=== PATIENT | female | born 1990 | race Two or more races ===

== ENCOUNTER → 2025-05-24 | Outpatient (CLI) | payer MEDICAID ==
[2025-05-24 07:20] LABS: Hematocrit 31.6 % (36.0-46.0); Hemoglobin 11.1 g/dL (12.2-16.2); Mean Corpuscular Hemoglobin 30.0 pg (28.0-32.0); Mean Corpuscular Volume 85.5 fL (80.0-100.0); Nucleated Red Blood Cells % 0.1 %
== END | disposition home or self-care (01) ==
LOC: LAB 06:43
PROVIDERS: ATTEND Obstetrics & Gynecology
DX: Z34.00 Encounter for supervision of normal first pregnancy, unspecified trimester (principal); Z3A.00 Weeks of gestation of pregnancy not specified
CPT/HCPCS: 36415; 82951; 83036; 85025

== ENCOUNTER 2025-07-01 08:40 | Outpatient (CLI) | payer MEDICAID ==
[2025-07-01 09:09] LABS: Hematocrit 31.7 % (36.0-46.0); Hemoglobin 11.0 g/dL (12.2-16.2); Mean Corpuscular Hemoglobin 29.7 pg (28.0-32.0); Mean Corpuscular Volume 85.5 fL (80.0-100.0); Nucleated Red Blood Cells % 0.0 %
[2025-07-02 22:06] LABS: Chlamydia Trachomatis, NAA Negative (Negative); Neisseria gonorrhoeae, NAA Negative (Negative)
== END 2025-07-01 17:00 | disposition home or self-care (01) ==
LOC: LAB 08:40
PROVIDERS: ATTEND Obstetrics & Gynecology
DX: Z34.80 Encounter for supervision of other normal pregnancy, unspecified trimester (principal); Z72.51 High risk heterosexual behavior; Z3A.00 Weeks of gestation of pregnancy not specified
CPT/HCPCS: 36415; 85025; 86780

== ENCOUNTER 2025-07-27 05:35 | Inpatient (IN) | payer MEDICAID ==
[~2025-07-27] VITALS: Ht 149.9 cm; Wt 74.4 kg
[2025-07-27] MEDS ORDERED: LIDOCAINE 2%HCL (LOCAL ANESTH.) INJ 20ML MDV IJ PRN (19:15)
[2025-07-27] MEDS ORDERED: BUTORPHANOL TARTRATE 2 MG/1 ML VIAL IV PRN ×2 (19:15)
[2025-07-27] MEDS ORDERED: TERBUTALINE SULFATE 1 MG/ML 1ML VIAL SC SCH (19:45)
[2025-07-27 20:04] LABS: Hematocrit 31.6 % (36.0-46.0); Hemoglobin 11.0 g/dL (12.2-16.2); Mean Corpuscular Hemoglobin 29.9 pg (28.0-32.0); Mean Corpuscular Volume 86.2 fL (80.0-100.0); Nucleated Red Blood Cells % 0.1 %
[2025-07-27 20:19] LABS: Amphetamine Screen, Urine Neg (NEGATIVE); Barbiturate Scree,Urine Neg (NEGATIVE); Benzodiazephine Screen, Urine Neg (NEGATIVE); Cannabinoid Screen, Urine Neg (NEGATIVE); Cocaine Screen, Urine Neg (NEGATIVE); Opiate Scree,Urine Neg (NEGATIVE); Phencyclidine Screen, Urine Neg (NEGATIVE)
--- NOTE | 2025-07-27 20:19 | DVH ---
INDICATION: Confirm Presentation TECHNIQUE: Multiple real-time grayscale transabdominal sonographic images along with color and duplex Doppler of the uterus and ovaries were obtained. 2 images sent and received COMPARISON: None FINDINGS: Cephalic presentation. Cervix is obscured by head presentation is the only information required clinical IMPRESSION: 1. Cephalic presentation.
[2025-07-27 20:21] LABS: Alanine Aminotransferase 20 U/L (7-40); Albumin 3.6 g/dL (3.2-4.8); Anion Gap 12 (5-15); BUN/Creatinine Ratio 12.2 (10.0-20.0); Bilirubin, Total 0.8 mg/dL (0.2-1.0); Calcium 9.1 mg/dL (8.7-10.4); Chloride 107 mmol/L (98-107); Potassium 3.5 mmol/L (3.5-5.1); Sodium 139 mmol/L (136-145); Total Protein 6.6 g/dL (5.7-8.2)
[2025-07-27 20:23] LABS: INR 0.96 (0.9-1.15); Partial Thromboplastin Time 25.2 SEC (24.5-34.5); Prothrombin Time 10.2 sec (9.3-11.8)
[2025-07-27 20:27] LABS: Urine Protein, UAD TRACE (Negative)
[2025-07-27 20:29] LABS: Alkaline Phosphatase 154 U/L (46-116); Blood Urea Nitrogen 6 mg/dL (9-23); Carbon Dioxide 20 mmol/L (20-31); Glucose 106 mg/dL (74-106)
[2025-07-27] MEDS: DERMOPLAST 60ML BOTTLE TOP PRN (22:17)
[2025-07-27] MEDS: LACTATED RINGER'S 1,000 ML IV SCH (22:17)
[2025-07-27] MEDS: WITCH HAZEL-GLYCERIN PAD TOP PRN (22:17)
[2025-07-27] MEDS: PHISODERM TOP SOLN 240ML BTL TOP PRN (22:17)
--- NOTE | 2025-07-27 23:09 | DVHHP2 ---
OB CC & HPI Date Date of Admission: Jul 27, 2025 Patient Identification: : 4 Para: 2 EDC: Jul 29, 2025 EGA: 39.5 Chief Complaints: Reason for admission: induction of labor (elective) Indication for induction: other (elective) History of Present Complaints 34yo IUP@ 39.5wks presents to L&D for scheduled elective induction of labor. Reports mild contractions. Denies LOF/VB/[place]/vision changes/RUQ pain. Endorses +FM. Routine PNC at [facility] OB office with Dr. Chapa, PNC uncompolicated. Dating based on 21 wk sono. GTT wnl. GBS negative OB hx: x2, uncomplicated in 2010 and 2011 Psych hx: denies Past Medical History Cardiac: No pertinent Hx Pulmonary: No pertinent Hx Central Nervous System: No pertinent Hx GI: No pertinent Hx Hemotology/Oncology: No pertinent Hx Hepatobiliary: No pertinent Hx Psychiatric: No pertinent Hx Musculoskeletal: No pertinent Hx Rheumotologic: No pertinent Hx Infectious Disease: No peritnent Hx ENT: No pertinent Hx Renal/: No pertinent Hx Endocrine: No pertinent Hx Dermatology: No pertinent Hx Past Surgical History: Other (appendectomy at 18 yo) OB History OB History Care: Good Care Ultrasounds: Normal mid trimester US (late PNC @ 21 wk) Obstetrical Complications: None Medical Complications: None Other Concerns: none Allergies: Coded Allergies: NO KNOWN ALLERGIES (Unverified , 07/27/25) Home Meds PNV Current Medications Current Medications Medications (Trade) Dose Ordered Sig/Deon Route PRN Reason Start Time Stop Time Status Last Admin Lactated Ringer's 1,000 ml @ 125 mls/hr Q8H IV 07/27/25 19:15 07/27/25 22:17 Witch Negin (Tucks) 1 pad PRN PRN TOP PERINEAL AREA DISCOMFORT 07/27/25 19:15 07/27/25 22:17 Sodium Lauryl Sulfate (Phisoderm) 240 ml PRN PRN TOP PERINEAL AREA DISCOMFORT 07/27/25 19:15 07/27/25 22:17 Benzocaine (Dermoplast) 1 applic PRN PRN TOP PERINEAL AREA DISCOMFORT 07/27/25 19:15 07/27/25 22:17 Butorphanol Tartrate (Stadol Injection) 1 mg Q4HPRN PRN IV MODERATE PAIN (4-6 PAIN SCALE) 07/27/25 19:15 Butorphanol Tartrate (Stadol Injection) 2 mg Q4HPRN PRN IV SEVERE PAIN (7-10 PAIN SCALE) 07/27/25 19:15 Misoprostol (Cytotec) 50 mcg Q4HPRN PRN PO CERVICAL RIPENING 07/27/25 19:15 07/27/25 22:57 Lidocaine HCl (Xylocaine) 20 ml ONCE PRN IJ PERINEAL AREA DISCOMFORT 07/27/25 19:15 Ondansetron HCl (Zofran) 4 mg Q4HPRN PRN IV NAUSEA / VOMITING 07/27/25 19:45 Terbutaline Sulfate (Brethine Inj) 0.25 mg Q20M SC 07/27/25 19:45 07/27/25 20:26 DC Family & Social History Family/Social History Past Family/Social History: denies Blood Type: O+ Rubella: immune RPR/VDRL: Negative GBS Status: Negative HBsAG: Negative Review of Systems Constitutional: No symptom reported Ears, Nose, & Throat: No symptom reported Eyes: No symptom reported Pulmonary/Respiratory: No symptom reported Cardiovascular: No symptom reported Gastrointestinal: No symptom reported Genitourinary: No symptom reported Musculoskeletal: No symptom reported Skin: No symptom reported Psychiatric: No symptom reported Endocrine: No symptom reported Hemotologic/Lymphatic: No symptom reported OB Admission Exam Physical Exam Vitals: VSS, see chart HEENT: TMs Normal, Fontanelles Normal, Nasal Mucosa Normal, Eyes non-injected, Oropharynx Normal, PERRLA, Moist Membranes, EOMI Heart: Rhythm Normal Lungs: Clear Abdomen: Gravid Extremities: Normal Reflexes: Normal Cervical Dilatation: Fingertip Effacement: Other (30%) Station: -3 Membranes: Intact Heart Rate: 130's Accelerations: Accelerations Present Decelerations: No Decelerations Tank Terminal Gauger Variability: Average (6-25) Contractions on Admission: >10 Minutes Apart Date/Time Contractions Began: 07/27/25 Frequency of Contractions: 1/10 min Duration: 70-90 Intensity: Mild OB Plan Plan Admitting Diagnosis: 34 yo IOL @ 39.5 wks Induction of Labor Intact membranes Cat 1 and 2 EFM GBS negative Intact membranes Plan: Induction Induction Methd: Misoprostol protocol Other Plan: P: Admit to L&D Informed consent obtained Discussed risks, benefits, alternatives of IOL with pt. Pt consents to IOL with PO cytotec. Discussed potential of placing CRB and starting pitocin at a favorable time with pt. Pt agrees with POC. monitoring per order Routine labs ordered Pain mgmt PRN Frequent position changes in and out of bed encouraged Limit SVE unless necessary Intrauterine resuscitation PRN Anticipate CNM will consult with Dr Chapa PRN Visit Coding OBGYN Date of Service: Jul 27, 2025 Billing Provider: HERBERT EVANS CNM QUALITATIVE FIELD COORDINATOR Common Visit Codes: [id number] INP/OBS CARE (MOD) QUALITATIVE FIELD COORDINATOR Procedure Codes: 52681-86- NON-STRESS TEST BETH GERARDO Jul 27, 2025 23:09
--- NOTE | 2025-07-28 07:08 | DVHPN2 ---
Chief Complaints Patient reports: No new complaints Nursing reports: No new complaints Objective Medications Current Medications Medications (Trade) Dose Ordered Sig/Deon Route PRN Reason Start Time Stop Time Status Last Admin Benzocaine (Dermoplast) 1 applic PRN PRN TOP PERINEAL AREA DISCOMFORT 07/27/25 19:15 07/27/25 22:17 Butorphanol Tartrate (Stadol Injection) 1 mg Q4HPRN PRN IV MODERATE PAIN (4-6 PAIN SCALE) 07/27/25 19:15 Butorphanol Tartrate (Stadol Injection) 2 mg Q4HPRN PRN IV SEVERE PAIN (7-10 PAIN SCALE) 07/27/25 19:15 Lactated Ringer's 1,000 ml @ 125 mls/hr Q8H IV 07/27/25 19:15 07/28/25 01:22 Lidocaine HCl (Xylocaine) 20 ml ONCE PRN IJ PERINEAL AREA DISCOMFORT 07/27/25 19:15 Misoprostol (Cytotec) 50 mcg Q4HPRN PRN PO CERVICAL RIPENING 07/27/25 19:15 07/28/25 04:44 Ondansetron HCl (Zofran) 4 mg Q4HPRN PRN IV NAUSEA / VOMITING 07/27/25 19:45 Sodium Lauryl Sulfate (Phisoderm) 240 ml PRN PRN TOP PERINEAL AREA DISCOMFORT 07/27/25 19:15 07/27/25 22:17 Witch Negin (Tucks) 1 pad PRN PRN TOP PERINEAL AREA DISCOMFORT 07/27/25 19:15 07/27/25 22:17 Others exam unchanged Studies Laboratory Tests 07/27/25 19:40 Test 07/27/25 19:40 Range/Units Serum Glucose 106 74-106 mg/dL Ass/Plan Assessment iol Plan recieved 2 cytotec suppoertive care Visit Coding OBGYN Date of Service: Jul 28, 2025 Billing Provider: BRENNEN AVITIA DO DELIVERY AGENT Common Visit Codes: [id number] INP/OBS CARE (HIGH) DELIVERY AGENT Procedure Codes: 92869-27- NON-STRESS TEST BRENNEN AVITIA DO Jul 28, 2025 07:08
[2025-07-28] MEDS: NALOXONE HCL 0.4 MG/ML VIAL IV ONE (08:30)
[2025-07-28] MEDS: LACTATED RINGER'S 1,000 ML IV ONE (08:52)
[2025-07-28] MEDS: fentaNYL CITRATE 100 MCG/2 ML VL IV ONE ×2 (09:42→18:18)
--- NOTE | 2025-07-28 10:10 | EPIDURAL ---
Anesthesia Procedural Note - Epidural Informed consent obtained?: Yes Medication Administered: Fentanyl 100 mcg Sterile prept drape: Yes Spinal level of insertion: L4-L5 Test dose of lidocaine & Epine: Negative Infusion started: Yes Start time: :10 End time: :40 Procedure description Procedure description: Called for labor analgesia. Patient examined, chart reviewed, history taken. Patient is in labor, requesting epidural. Informed consent for CSE obtained. Sitting position, sterile prep and drape. Time out done (BP 120/70 HR 92 spO2 99). L4-5 space infiltrated with 1% lido. Epidural needle placed with DORIS at 5.5cm. 25G spinal needle +clear CSF. 15mcg fentanyl given IT. Catheter secured at 12cm (BP 122/80 HR 91 spO2 99). Aspiration and test dose (3cc 1.5% lido with epi) negative (BOP 118/75 HR 87 spO2 99). 85mcg fentanyl given via epidural. Patient reports good pain relief. 0.2% ropivacaine infusion started. Will follow as needed. JIGNA OWEN MD Jul 28, 2025 10:10
[2025-07-28] MEDS: LACT. RINGERS/OXYTOCIN 20UNITS 1,000 ML IV SCH (11:50)
[2025-07-28] MEDS ORDERED: fentaNYL CITRATE 100 MCG/2 ML VL ONE (12:37)
[2025-07-28] MEDS ORDERED: LIDOCAINE 2% (LOCAL ANESTH.) PF 5ml SDV ONE (12:37)
[2025-07-28] MEDS: ACETAMINOPHEN IV 0 ML IV ONE (14:44)
--- NOTE | 2025-07-28 14:55 | DVH ---
BIOPHYSICAL PROFILE HISTORY: Presentation Comparison Study: US OBSTERICAL LIMITED on DOS: 07/27/25 TECHNIQUE: Multiple real-time grayscale sonographic images through the gravid uterus of the fetus wi th duplex Doppler color flow and M-mode spectral analysis Findings/ IMPRESSION: Single intrauterine . Cephalic presentation. heart rate 138 beats per minute
[2025-07-28] MEDS: LIDOCAINE HCL 2 %PF INJ 10ML AMP IJ ONE (17:59)
[2025-07-28] MEDS: ROPIVACAINE HCL 100 ML ONE ×3 (18:28→21:23)
[2025-07-29] MEDS: ONDANSETRON HCL 4 MG/2 ML VIAL IV PRN (00:59)
--- NOTE | 2025-07-29 03:13 | LDN2 ---
Labor and Delivery Note Date 07/29/25 Age 34 4 Para 3 AB 1 EDC 10-24 EGA 40wks Diagnosis iol pt desired iol,40wks Vaginal Delivery: VTX Vacuum Assisted: Yes Placenta: Spontaneous Sex: Male Apgars 5-8 Nuchal Cord Transected: Yes Amniotic Fluid: Thin Anesthesia epidural Episiotomy: No Extension: No Repaired with none EBL 300ml Labs Laboratory Tests 08/28/10 17:08: Hepatitis B Surface Antigen Negative, Rubella Antibody Positive Blood Bank 07/27/25 19:40: Blood Type O POSITIVE Complications none Conditions stable Comments/Significant Med Leila spec exam no cxal lac pt was not able to push and baby was having decls and mod mec subseq permission was obtained to apply vaccum.vaccum applied successsfully and delivered baby .cord ph 7.2 and 7.1 Visit Coding OBGYN Date of Service: Jul 29, 2025 Billing Provider: BRENNEN AVITIA DO BODY BUILDER Common Visit Codes: [id number] OBS CARE (HIGH) BODY BUILDER Procedure Codes: 63118-87- NON-STRESS TEST BRENNEN AVITIA DO Jul 29, 2025 03:13
[2025-07-29] MEDS: ONDANSETRON HCL 4 MG/2 ML VIAL ONE (03:43)
[2025-07-29] MEDS: ACETAMINOPHEN IV 1000 MG/100ML (10MG/ML) IV PRN (03:56)
[2025-07-29] MEDS: CARBOPROST TROMETHAMINE 250 MCG/1ML VIAL IM ONE (04:10)
[2025-07-29] MEDS: DIPHENOXYLATE W/ATROPINE 2.5 MG TAB ONE (04:10)
[2025-07-29] MEDS: ROPIVACAINE HCL 100 ML ONE (04:37)
[2025-07-29] MEDS: LACT. RINGERS/OXYTOCIN 20UNITS 500 ML IV ONE ×2 (04:38→04:40)
[2025-07-29] MEDS: METHYLERGONOVINE MALEATE 0.2 MG/ML AMP IM ONE (04:49)
[2025-07-29] MEDS: TERBUTALINE SULFATE 1 MG/ML 1ML VIAL SC ONE (04:51)
[2025-07-29] MEDS: PIPERACILLIN-TAZOB 3.375GM 100 ML IV SCH (05:02)
[2025-07-29 05:05] LABS: Hematocrit 33.5 % (36.0-46.0); Hemoglobin 11.2 g/dL (12.2-16.2); Mean Corpuscular Hemoglobin 29.5 pg (28.0-32.0); Mean Corpuscular Volume 88.2 fL (80.0-100.0); Nucleated Red Blood Cells % 0.0 %
[2025-07-29 05:06] LABS: Urine Protein, UAD Negative (Negative)
[2025-07-29 06:33] VITALS: BP 125/65; PULSE 103; RESP 18; TEMP 98.7; O2SAT 96
--- NOTE | 2025-07-29 06:43 | DVHPN2 ---
CNM Labor Progress Note Date and Time Seen Date Seen: Jul 28, 2025 Time Seen: 21:00 Subjective Patient reports: Feels worse Subjective Comment Judy is laying L lateral upon entry to room and is feeling very uncomfortable pressure. Monitoring Method Monitoring Method: External Heart Rate Heart Rate Baseline: 150 Heart Rate Variability: Moderate Presence of FHR Accelerations: Yes Heart Rate Type of Decel: Early Deceleraions, Late Decelerations Comment on Trends or Patterns: cat 2 Contractions Contractions Frequency: Occasional (every 3 minutes) Contractions Intensity: Moderate Contractions Resting Tone: Relaxed Membranes Membranes: Ruptured Amniotic Fluid Color: Clear Vaginal Exam Vag Exam Deferred: No Vaginal Exam Dilation: 6 Vaginal Exam Effacement: 80 Vaginal Exam Station: -2 Vaginal Exam Presentation: VTX Vaginal Exam Show: Small Medications Medications - Pitocin: No Medication - Epidural: Yes Lab Results Lab Results Vital Signs Date Time Temp Pulse Resp B/P (MAP) Pulse Ox O2 Delivery O2 Flow Rate FiO2 07/29/25 06:33 98.7 103 18 125/65 (85) 96 98.7 Current Medications Medications (Trade) Dose Ordered Sig/Deon Start Time Stop Time Status Last Admin Dose Admin Lactated Ringer's 1,000 ml @ 125 mls/hr Q8H 07/27/25 19:15 07/29/25 04:00 125 MLS/HR Tommy Kam (Tucks) 1 pad PRN PRN 07/27/25 19:15 07/27/25 22:17 1 PAD Sodium Lauryl Sulfate (Phisoderm) 240 ml PRN PRN 07/27/25 19:15 07/27/25 22:17 240 ML Benzocaine (Dermoplast) 1 applic PRN PRN 07/27/25 19:15 07/27/25 22:17 1 APPLIC Butorphanol Tartrate (Stadol Injection) 1 mg Q4HPRN PRN 07/27/25 19:15 Butorphanol Tartrate (Stadol Injection) 2 mg Q4HPRN PRN 07/27/25 19:15 Misoprostol (Cytotec) 50 mcg Q4HPRN PRN 07/27/25 19:15 07/28/25 04:44 50 MCG Lidocaine HCl (Xylocaine) 20 ml ONCE PRN 07/27/25 19:15 Ondansetron HCl (Zofran) 4 mg Q4HPRN PRN 07/27/25 19:45 07/29/25 00:59 4 MG Terbutaline Sulfate (Brethine Inj) 0.25 mg Q20M 07/27/25 19:45 07/27/25 20:26 DC Oxytocin 500 ml @ 999 mls/hr Q31M ONCE 07/28/25 06:00 07/28/25 06:30 DC 07/29/25 04:38 999 MLS/HR Oxytocin 500 ml @ 125 mls/hr Q4H ONCE 07/28/25 06:30 07/28/25 10:29 DC 07/29/25 04:40 125 MLS/HR Naloxone HCl (Narcan) 0.2 mg PRN ONCE 07/28/25 08:30 07/28/25 08:38 DC Ephedrine Sulfate (ePHEDrine SULFATE) 10 mg PRN ONCE 07/28/25 08:30 07/28/25 08:38 DC 07/28/25 18:24 5 MG Fentanyl Citrate 100 mcg ONCE ONCE 07/28/25 08:30 07/28/25 08:38 DC 07/28/25 09:42 100 MCG Lactated Ringer's 1,000 ml @ 1,000 mls/hr Q1H ONCE 07/28/25 08:30 07/28/25 09:29 DC 07/28/25 08:52 1,000 MLS/HR Oxytocin 1,000 ml @ 6 ml/hr Q24H 07/28/25 10:30 07/28/25 11:50 6 ML/HR Fentanyl Citrate 100 mcg ONCE ONCE 07/28/25 13:00 07/28/25 13:01 DC 07/28/25 18:18 100 MCG Lidocaine HCl (Xylocaine-Pf 2% Injection) 10 ml ONCE ONCE 07/28/25 13:00 07/28/25 13:01 DC 07/28/25 17:59 10 ML Piperacillin Sod/ Tazobactam Sod 100 ml @ 25 mls/hr Q6HR 07/29/25 04:00 07/29/25 05:02 25 MLS/HR Acetaminophen (Ofirmev) 1,000 mg O PRN 07/29/25 03:30 07/30/25 03:29 07/29/25 03:56 1,000 MG Laboratory Tests Test 07/29/25 04:46 07/29/25 04:39 07/27/25 19:40 07/27/25 19:38 Range/Units Urine Color Light-yellow Yellow Urine Clarity Clear Clear Urine pH 6.5 5.0-9.0 Urine Specific [place] 1.009 1.001-1.035 Urine Protein Negative Negative Urine Ketones 3+ H Negative Urine Blood 1+ H Negative /uL Urine Nitrite Negative Negative Urine Bilirubin Negative Negative Urine Urobilinogen Normal Negative mg/dL Urine Leukocyte Esterase Negative Negative /uL Urine RBC 30 0 - 4 /hpf Urine Microscopic WBC 4 0-5 /HPF Urine Squamous Epithelial Cells Few <5 /hpf Urine Bacteria None seen None Seen /hpf Urine Glucose Normal Normal mg/dL White Blood Count 21.0 #H 4.4-10.8 10^3/uL Red Blood Count 3.80 L 4.0-5.20 10^6/uL Hemoglobin 11.2 L 12.2-16.2 g/dL Hematocrit 33.5 L 36.0-46.0 % Mean Corpuscular Volume 88.2 80.0-100.0 fL Mean Corpuscular Hemoglobin 29.5 28.0-32.0 pg Mean Corpuscular Hemoglobin Concent 33.4 32.0-36.0 g/dL Red Cell Distribution Width 13.6 11.8-14.3 % Platelet Count 193 140-450 10^3/uL Mean Platelet Volume 8.9 6.9-10.8 fL Neutrophils (%) (Auto) 90.9 H 37.0-80.0 % Lymphocytes (%) (Auto) 1.9 L 10.0-50.0 % Monocytes (%) (Auto) 7.1 0.0-12.0 % Eosinophils (%) (Auto) 0.0 0.0-7.0 % Basophils (%) (Auto) 0.1 0.0-2.0 % Neutrophils # (Auto) 19.1 H 1.6-8.6 10 ^3/uL Lymphocytes # (Auto) 0.4 0.4-5.4 10 ^3/uL Monocytes # (Auto) 1.5 H 0-1.3 10 ^3/uL Eosinophils # (Auto) 0 0-0.8 10 ^3/uL Basophils # (Auto) 0 0-0.2 10 ^3/uL Nucleated Red Blood Cells 0.0 % Prothrombin Time 10.2 9.3-11.8 sec Prothrombin Time INR 0.96 0.9-1.15 Activated Partial Thromboplast Time 25.2 24.5-34.5 SEC Sodium Level 139 136-145 mmol/L Potassium Level 3.5 3.5-5.1 mmol/L Chloride Level 107 98-107 mmol/L Carbon Dioxide Level 20 20-31 mmol/L Anion Gap 12 5-15 Blood Urea Nitrogen 6 L 9-23 mg/dL Creatinine 0.49 L 0.550-1.02 mg/dL Glomerular Filtration Rate Calc 127 >90 mL/min BUN/Creatinine Ratio 12.2 10.0-20.0 Serum Glucose 106 74-106 mg/dL Calcium Level 9.1 8.7-10.4 mg/dL Total Bilirubin 0.8 0.2-1.0 mg/dL Aspartate Amino Transferase (AST) 23 13-40 U/L Alanine Aminotransferase (ALT) 20 7-40 U/L Alkaline Phosphatase 154 H 46-116 U/L Total Protein 6.6 5.7-8.2 g/dL Albumin 3.6 3.2-4.8 g/dL Treponema pallidum Antibody Non-reactive Negative Hepatitis C Antibody Negative Negative Urine Mucus Few None Seen Urine Opiates Screen Neg NEGATIVE Urine Fentanyl Screen Neg NEGATIVE Urine Barbiturates Screen Neg NEGATIVE Urine Phencyclidine Screen Neg NEGATIVE Urine Amphetamines Screen Neg NEGATIVE Urine Benzodiazepines Screen Neg NEGATIVE Urine Cocaine Screen Neg NEGATIVE Urine Cannabinoids Screen Neg NEGATIVE Assessment Assessment -34 yo at 39w6d -Elective IOL- active labor -GBS negative -Category 2 tracing Plan Plan -Continue repositioning patient frequently and as needed for maternal comfort and tracing -Dr. Bernard to come to bedside to assess pt epidural and address pain -Continue expectant management at this time. Re-assess cervix in 3-4 hours or sooner as indicated Plan discussed with: Patient, Spouse Visit Coding OBGYN Date of Service: Jul 29, 2025 Billing Provider: DAYNE MURCIA CNM CLIENT SUPPORT ADMINISTRATOR Common Visit Codes: [id number] INP/OBS CARE(MOD) DAYNE MURCIA CNM Jul 29, 2025 06:43
--- NOTE | 2025-07-29 06:49 | DVHPN2 ---
[facility] Labor Progress Note Date and Time Seen Date Seen: Jul 29, 2025 Time Seen: 01:00 Subjective Patient reports: No new complaints Subjective Comment Called to bedside by RN to assess espino catheter. Output dramatically decreased in the previous hour Objective Vital Signs VSS Monitoring Method Monitoring Method: External Heart Rate Heart Rate Baseline: 150 Heart Rate Variability: Moderate Presence of FHR Accelerations: Yes Presence of FHR Decelerations: Yes Heart Rate Type of Decel: Late Decelerations (intermittent) Comment on Trends or Patterns: cat 2 Contractions Contractions Frequency: Occasional (every 2-4 minutes) Contractions Intensity: Moderate Contractions Resting Tone: Relaxed Membranes Membranes: Ruptured Amniotic Fluid Color: Clear Vaginal Exam Vag Exam Deferred: No Vaginal Exam Dilation: 9 (cervix present on pt R side) Vaginal Exam Effacement: 100 Vaginal Exam Station: -1 Vaginal Exam Presentation: VTX Vaginal Exam Show: Small Medications Medications - Pitocin: No Medication - Epidural: Yes Lab Results Lab Results Vital Signs Date Time Temp Pulse Resp B/P (MAP) Pulse Ox O2 Delivery O2 Flow Rate FiO2 07/29/25 06:33 98.7 103 18 125/65 (85) 96 98.7 Current Medications Medications (Trade) Dose Ordered Sig/Deon Start Time Stop Time Status Last Admin Dose Admin Lactated Ringer's 1,000 ml @ 125 mls/hr Q8H 07/27/25 19:15 07/29/25 04:00 125 MLS/HR Tommy Kam (Tucks) 1 pad PRN PRN 07/27/25 19:15 07/27/25 22:17 1 PAD Sodium Lauryl Sulfate (Phisoderm) 240 ml PRN PRN 07/27/25 19:15 07/27/25 22:17 240 ML Benzocaine (Dermoplast) 1 applic PRN PRN 07/27/25 19:15 07/27/25 22:17 1 APPLIC Butorphanol Tartrate (Stadol Injection) 1 mg Q4HPRN PRN 07/27/25 19:15 Butorphanol Tartrate (Stadol Injection) 2 mg Q4HPRN PRN 07/27/25 19:15 Misoprostol (Cytotec) 50 mcg Q4HPRN PRN 07/27/25 19:15 07/28/25 04:44 50 MCG Lidocaine HCl (Xylocaine) 20 ml ONCE PRN 07/27/25 19:15 Ondansetron HCl (Zofran) 4 mg Q4HPRN PRN 07/27/25 19:45 07/29/25 00:59 4 MG Terbutaline Sulfate (Brethine Inj) 0.25 mg Q20M 07/27/25 19:45 07/27/25 20:26 DC Oxytocin 500 ml @ 999 mls/hr Q31M ONCE 07/28/25 06:00 07/28/25 06:30 DC 07/29/25 04:38 999 MLS/HR Oxytocin 500 ml @ 125 mls/hr Q4H ONCE 07/28/25 06:30 07/28/25 10:29 DC 07/29/25 04:40 125 MLS/HR Naloxone HCl (Narcan) 0.2 mg PRN ONCE 07/28/25 08:30 07/28/25 08:38 DC Ephedrine Sulfate (ePHEDrine SULFATE) 10 mg PRN ONCE 07/28/25 08:30 07/28/25 08:38 DC 07/28/25 18:24 5 MG Fentanyl Citrate 100 mcg ONCE ONCE 07/28/25 08:30 07/28/25 08:38 DC 07/28/25 09:42 100 MCG Lactated Ringer's 1,000 ml @ 1,000 mls/hr Q1H ONCE 07/28/25 08:30 07/28/25 09:29 DC 07/28/25 08:52 1,000 MLS/HR Oxytocin 1,000 ml @ 6 ml/hr Q24H 07/28/25 10:30 07/28/25 11:50 6 ML/HR Fentanyl Citrate 100 mcg ONCE ONCE 07/28/25 13:00 07/28/25 13:01 DC 07/28/25 18:18 100 MCG Lidocaine HCl (Xylocaine-Pf 2% Injection) 10 ml ONCE ONCE 07/28/25 13:00 07/28/25 13:01 DC 07/28/25 17:59 10 ML Piperacillin Sod/ Tazobactam Sod 100 ml @ 25 mls/hr Q6HR 07/29/25 04:00 07/29/25 05:02 25 MLS/HR Acetaminophen (Ofirmev) 1,000 mg O PRN 07/29/25 03:30 07/30/25 03:29 07/29/25 03:56 1,000 MG Laboratory Tests Test 07/29/25 04:46 07/29/25 04:39 07/27/25 19:40 07/27/25 19:38 Range/Units Urine Color Light-yellow Yellow Urine Clarity Clear Clear Urine pH 6.5 5.0-9.0 Urine Specific [place] 1.009 1.001-1.035 Urine Protein Negative Negative Urine Ketones 3+ H Negative Urine Blood 1+ H Negative /uL Urine Nitrite Negative Negative Urine Bilirubin Negative Negative Urine Urobilinogen Normal Negative mg/dL Urine Leukocyte Esterase Negative Negative /uL Urine RBC 30 0 - 4 /hpf Urine Microscopic WBC 4 0-5 /HPF Urine Squamous Epithelial Cells Few <5 /hpf Urine Bacteria None seen None Seen /hpf Urine Glucose Normal Normal mg/dL White Blood Count 21.0 #H 4.4-10.8 10^3/uL Red Blood Count 3.80 L 4.0-5.20 10^6/uL Hemoglobin 11.2 L 12.2-16.2 g/dL Hematocrit 33.5 L 36.0-46.0 % Mean Corpuscular Volume 88.2 80.0-100.0 fL Mean Corpuscular Hemoglobin 29.5 28.0-32.0 pg Mean Corpuscular Hemoglobin Concent 33.4 32.0-36.0 g/dL Red Cell Distribution Width 13.6 11.8-14.3 % Platelet Count 193 140-450 10^3/uL Mean Platelet Volume 8.9 6.9-10.8 fL Neutrophils (%) (Auto) 90.9 H 37.0-80.0 % Lymphocytes (%) (Auto) 1.9 L 10.0-50.0 % Monocytes (%) (Auto) 7.1 0.0-12.0 % Eosinophils (%) (Auto) 0.0 0.0-7.0 % Basophils (%) (Auto) 0.1 0.0-2.0 % Neutrophils # (Auto) 19.1 H 1.6-8.6 10 ^3/uL Lymphocytes # (Auto) 0.4 0.4-5.4 10 ^3/uL Monocytes # (Auto) 1.5 H 0-1.3 10 ^3/uL Eosinophils # (Auto) 0 0-0.8 10 ^3/uL Basophils # (Auto) 0 0-0.2 10 ^3/uL Nucleated Red Blood Cells 0.0 % Prothrombin Time 10.2 9.3-11.8 sec Prothrombin Time INR 0.96 0.9-1.15 Activated Partial Thromboplast Time 25.2 24.5-34.5 SEC Sodium Level 139 136-145 mmol/L Potassium Level 3.5 3.5-5.1 mmol/L Chloride Level 107 98-107 mmol/L Carbon Dioxide Level 20 20-31 mmol/L Anion Gap 12 5-15 Blood Urea Nitrogen 6 L 9-23 mg/dL Creatinine 0.49 L 0.550-1.02 mg/dL Glomerular Filtration Rate Calc 127 >90 mL/min BUN/Creatinine Ratio 12.2 10.0-20.0 Serum Glucose 106 74-106 mg/dL Calcium Level 9.1 8.7-10.4 mg/dL Total Bilirubin 0.8 0.2-1.0 mg/dL Aspartate Amino Transferase (AST) 23 13-40 U/L Alanine Aminotransferase (ALT) 20 7-40 U/L Alkaline Phosphatase 154 H 46-116 U/L Total Protein 6.6 5.7-8.2 g/dL Albumin 3.6 3.2-4.8 g/dL Treponema pallidum Antibody Non-reactive Negative Hepatitis C Antibody Negative Negative Urine Mucus Few None Seen Urine Opiates Screen Neg NEGATIVE Urine Fentanyl Screen Neg NEGATIVE Urine Barbiturates Screen Neg NEGATIVE Urine Phencyclidine Screen Neg NEGATIVE Urine Amphetamines Screen Neg NEGATIVE Urine Benzodiazepines Screen Neg NEGATIVE Urine Cocaine Screen Neg NEGATIVE Urine Cannabinoids Screen Neg NEGATIVE Assessment Assessment ASSESSMENT -34 yo at 39w6d -Elective IOL- active labor -GBS negative -Category 2 tracing Plan Plan PLAN -SVE discussed and performed with consent to assess if espino balloon had come forward below head. Espino balloon not felt. Balloon deflated and espino removed. New espino catheter inserted. -Continue repositioning patient frequently and as needed for maternal comfort and tracing -Continue expectant management at this time, r/t strip unable to tolerate pitocin augmentation. Anticipate normal spontaneous vaginal delivery Plan discussed with: Patient, Spouse Visit Coding OBGYN Date of Service: Jul 29, 2025 Billing Provider: DAYNE MURCIA CNM COMPUTER OPERATIONS MANAGER Common Visit Codes: [id number] INP/OBS CARE(HIGH) DAYNE MURCIA CNM Jul 29, 2025 06:49
--- NOTE | 2025-07-29 06:55 | DVHPN2 ---
[facility] Labor Progress Note Date and Time Seen Date Seen: Jul 29, 2025 Time Seen: 01:40 Subjective Patient reports: No new complaints Subjective Comment Reviewed primary c/s checklist with weigher and charger at nursing station. Discussed interventions to help heart rate tracing with patient at bedside and discussed possibility of operative delivery or c/s if tracing does not improve. Objective Vital Signs VSS Monitoring Method Monitoring Method: External Heart Rate Heart Rate Baseline: 150 Heart Rate Variability: Moderate Presence of FHR Accelerations: Yes Presence of FHR Decelerations: Yes Heart Rate Type of Decel: Variable Decelerations, Late Decelerations Comment on Trends or Patterns: cat 2 Contractions Contractions Frequency: Occasional (every 3-4 minutes) Contractions Intensity: Moderate Contractions Resting Tone: Relaxed Membranes Membranes: Ruptured Amniotic Fluid Color: CLINICAL LIAISON Meconium Vaginal Exam Vag Exam Deferred: No Medications Medications - Pitocin: No Medication - Epidural: Yes Lab Results Lab Results Vital Signs Date Time Temp Pulse Resp B/P (MAP) Pulse Ox O2 Delivery O2 Flow Rate FiO2 07/29/25 06:33 98.7 103 18 125/65 (85) 96 98.7 Current Medications Medications (Trade) Dose Ordered Sig/Deon Start Time Stop Time Status Last Admin Dose Admin Lactated Ringer's 1,000 ml @ 125 mls/hr Q8H 07/27/25 19:15 07/29/25 04:00 125 MLS/HR Witch Negin (Tucks) 1 pad PRN PRN 07/27/25 19:15 07/27/25 22:17 1 PAD Sodium Lauryl Sulfate (Phisoderm) 240 ml PRN PRN 07/27/25 19:15 07/27/25 22:17 240 ML Benzocaine (Dermoplast) 1 applic PRN PRN 07/27/25 19:15 07/27/25 22:17 1 APPLIC Butorphanol Tartrate (Stadol Injection) 1 mg Q4HPRN PRN 07/27/25 19:15 Butorphanol Tartrate (Stadol Injection) 2 mg Q4HPRN PRN 07/27/25 19:15 Misoprostol (Cytotec) 50 mcg Q4HPRN PRN 07/27/25 19:15 07/28/25 04:44 50 MCG Lidocaine HCl (Xylocaine) 20 ml ONCE PRN 07/27/25 19:15 Ondansetron HCl (Zofran) 4 mg Q4HPRN PRN 07/27/25 19:45 07/29/25 00:59 4 MG Terbutaline Sulfate (Brethine Inj) 0.25 mg Q20M 07/27/25 19:45 07/27/25 20:26 DC Oxytocin 500 ml @ 999 mls/hr Q31M ONCE 07/28/25 06:00 07/28/25 06:30 DC 07/29/25 04:38 999 MLS/HR Oxytocin 500 ml @ 125 mls/hr Q4H ONCE 07/28/25 06:30 07/28/25 10:29 DC 07/29/25 04:40 125 MLS/HR Naloxone HCl (Narcan) 0.2 mg PRN ONCE 07/28/25 08:30 07/28/25 08:38 DC Ephedrine Sulfate (ePHEDrine SULFATE) 10 mg PRN ONCE 07/28/25 08:30 07/28/25 08:38 DC 07/28/25 18:24 5 MG Fentanyl Citrate 100 mcg ONCE ONCE 07/28/25 08:30 07/28/25 08:38 DC 07/28/25 09:42 100 MCG Lactated Ringer's 1,000 ml @ 1,000 mls/hr Q1H ONCE 07/28/25 08:30 07/28/25 09:29 DC 07/28/25 08:52 1,000 MLS/HR Oxytocin 1,000 ml @ 6 ml/hr Q24H 07/28/25 10:30 07/28/25 11:50 6 ML/HR Fentanyl Citrate 100 mcg ONCE ONCE 07/28/25 13:00 07/28/25 13:01 DC 07/28/25 18:18 100 MCG Lidocaine HCl (Xylocaine-Pf 2% Injection) 10 ml ONCE ONCE 07/28/25 13:00 07/28/25 13:01 DC 07/28/25 17:59 10 ML Piperacillin Sod/ Tazobactam Sod 100 ml @ 25 mls/hr Q6HR 07/29/25 04:00 07/29/25 05:02 25 MLS/HR Acetaminophen (Ofirmev) 1,000 mg O PRN 07/29/25 03:30 07/30/25 03:29 07/29/25 03:56 1,000 MG Laboratory Tests Test 07/29/25 04:46 07/29/25 04:39 07/27/25 19:40 07/27/25 19:38 Range/Units Urine Color Light-yellow Yellow Urine Clarity Clear Clear Urine pH 6.5 5.0-9.0 Urine Specific [place] 1.009 1.001-1.035 Urine Protein Negative Negative Urine Ketones 3+ H Negative Urine Blood 1+ H Negative /uL Urine Nitrite Negative Negative Urine Bilirubin Negative Negative Urine Urobilinogen Normal Negative mg/dL Urine Leukocyte Esterase Negative Negative /uL Urine RBC 30 0 - 4 /hpf Urine Microscopic WBC 4 0-5 /HPF Urine Squamous Epithelial Cells Few <5 /hpf Urine Bacteria None seen None Seen /hpf Urine Glucose Normal Normal mg/dL White Blood Count 21.0 #H 4.4-10.8 10^3/uL Red Blood Count 3.80 L 4.0-5.20 10^6/uL Hemoglobin 11.2 L 12.2-16.2 g/dL Hematocrit 33.5 L 36.0-46.0 % Mean Corpuscular Volume 88.2 80.0-100.0 fL Mean Corpuscular Hemoglobin 29.5 28.0-32.0 pg Mean Corpuscular Hemoglobin Concent 33.4 32.0-36.0 g/dL Red Cell Distribution Width 13.6 11.8-14.3 % Platelet Count 193 140-450 10^3/uL Mean Platelet Volume 8.9 6.9-10.8 fL Neutrophils (%) (Auto) 90.9 H 37.0-80.0 % Lymphocytes (%) (Auto) 1.9 L 10.0-50.0 % Monocytes (%) (Auto) 7.1 0.0-12.0 % Eosinophils (%) (Auto) 0.0 0.0-7.0 % Basophils (%) (Auto) 0.1 0.0-2.0 % Neutrophils # (Auto) 19.1 H 1.6-8.6 10 ^3/uL Lymphocytes # (Auto) 0.4 0.4-5.4 10 ^3/uL Monocytes # (Auto) 1.5 H 0-1.3 10 ^3/uL Eosinophils # (Auto) 0 0-0.8 10 ^3/uL Basophils # (Auto) 0 0-0.2 10 ^3/uL Nucleated Red Blood Cells 0.0 % Prothrombin Time 10.2 9.3-11.8 sec Prothrombin Time INR 0.96 0.9-1.15 Activated Partial Thromboplast Time 25.2 24.5-34.5 SEC Sodium Level 139 136-145 mmol/L Potassium Level 3.5 3.5-5.1 mmol/L Chloride Level 107 98-107 mmol/L Carbon Dioxide Level 20 20-31 mmol/L Anion Gap 12 5-15 Blood Urea Nitrogen 6 L 9-23 mg/dL Creatinine 0.49 L 0.550-1.02 mg/dL Glomerular Filtration Rate Calc 127 >90 mL/min BUN/Creatinine Ratio 12.2 10.0-20.0 Serum Glucose 106 74-106 mg/dL Calcium Level 9.1 8.7-10.4 mg/dL Total Bilirubin 0.8 0.2-1.0 mg/dL Aspartate Amino Transferase (AST) 23 13-40 U/L Alanine Aminotransferase (ALT) 20 7-40 U/L Alkaline Phosphatase 154 H 46-116 U/L Total Protein 6.6 5.7-8.2 g/dL Albumin 3.6 3.2-4.8 g/dL Treponema pallidum Antibody Non-reactive Negative Hepatitis C Antibody Negative Negative Urine Mucus Few None Seen Urine Opiates Screen Neg NEGATIVE Urine Fentanyl Screen Neg NEGATIVE Urine Barbiturates Screen Neg NEGATIVE Urine Phencyclidine Screen Neg NEGATIVE Urine Amphetamines Screen Neg NEGATIVE Urine Benzodiazepines Screen Neg NEGATIVE Urine Cocaine Screen Neg NEGATIVE Urine Cannabinoids Screen Neg NEGATIVE Assessment Assessment ASSESSMENT -34 yo at 40w0d -Elective IOL- active labor -GBS negative -Category 2 tracing Plan Plan PLAN -SVE discussed and performed with consent to place [facility] and begin amnioinfusion. Answered all patient questions and concerns regarding interventions for heart rate tracing. -Continue repositioning patient frequently and as needed for maternal comfort and tracing -CN to call Dr Chapa to bedside to evaluate tracing and labor progress. Plan discussed with: Patient, Spouse Visit Coding OBGYN Date of Service: Jul 29, 2025 Billing Provider: DAYNE MURCIA CNM BALL MACHINE OPERATOR Common Visit Codes: [id number] INP/OBS CARE(MOD) DAYNE MURCIA CNM Jul 29, 2025 06:55
[2025-07-29] MEDS ORDERED: ONDANSETRON ODT 4 MG TAB PO PRN (08:15)
[2025-07-29] MEDS ORDERED: ACETAMINOPHEN 325 MG TAB PO PRN (08:15)
[2025-07-29 11:13] VITALS: BP 114/62; PULSE 104; RESP 17; TEMP 98.5; O2SAT 98
[2025-07-29] MEDS: IBUPROFEN 600 MG TAB PO PRN (12:05)
[2025-07-29 14:34] VITALS: BP 99/57; PULSE 86; RESP 17; TEMP 98.4; O2SAT 98
[2025-07-29] MEDS ORDERED: PREN-96 PO (16:31)
[2025-07-29 19:00] VITALS: BP 101/57; PULSE 83; RESP 16; TEMP 98.5; O2SAT 99
[2025-07-29 22:50] VITALS: BP 98/53; PULSE 82; RESP 18; TEMP 98.1; O2SAT 98
--- NOTE | 2025-07-30 01:39 | DVHPN2 ---
Progress Note Date Seen: Jul 30, 2025 Subjective Judy is resting L lateral in bed with baby swaddled at her side upon entry to room. She is feeling better than she expected to and is eager to go home SUBJECTIVE -Lochia minimal -Tolerating regular diet well. -Pain relieved with oral medication PRN -Ambulating and voiding well w/o feeling lightheaded or dizzy. -Passing flatus but no BM yet -Combofeeding. -Desires and requests to be discharged home today (07/30) vital signs Vital Sign Date Time Temp Pulse Resp B/P (MAP) Pulse Ox O2 Delivery O2 Flow Rate FiO2 07/29/25 19:00 Room Air 07/29/25 19:00 98.5 83 16 101/57 (72) 99 98.5 Total Intake and Output 07/29/25 07/29/25 07/30/25 15:00 23:00 07:00 Output Total 1490 ml Balance -1490 ml medications Current Medications Medications Dose Ordered Sig/Deon Route Start Time Stop Time Status Last Admin Dose Admin Tommy Kam 1 pad PRN PRN TOP 07/27/25 19:15 07/27/25 22:17 1 PAD Sodium Lauryl Sulfate 240 ml PRN PRN TOP 07/27/25 19:15 07/27/25 22:17 240 ML Benzocaine 1 applic PRN PRN TOP 07/27/25 19:15 07/27/25 22:17 1 APPLIC Butorphanol Tartrate 1 mg Q4HPRN PRN IV 07/27/25 19:15 Cancel Butorphanol Tartrate 2 mg Q4HPRN PRN IV 07/27/25 19:15 Cancel Lidocaine HCl 20 ml ONCE PRN IJ 07/27/25 19:15 Cancel Piperacillin Sod/ Tazobactam Sod 100 ml @ 25 mls/hr Q6HR IV 07/29/25 04:00 Hold 07/29/25 19:18 25 MLS/HR Ibuprofen 600 mg Q6HP PRN PO 07/29/25 08:15 07/29/25 19:12 600 MG Acetaminophen 650 mg Q4HP PRN PO 07/29/25 08:15 Ondansetron HCl 4 mg Q4HPRN PRN PO 07/29/25 08:15 Cefazolin Sodium 50 ml @ 100 mls/hr Q8H IV 07/29/25 18:15 laboratory and microbiology Laboratory Tests 07/29/25 04:39 07/27/25 19:40 Test 07/27/25 19:40 Range/Units Serum Glucose 106 74-106 mg/dL Objective OBJECTIVE -A&O x4. No apparent distress. Affect appropriate -Afebrile, VSS -Chest: heart and lung sounds normal. -Breasts: Nipples intact w/o cracks or soreness -Abdomen: normal BS, soft, non-tender, no rebound or guarding, fundus firm @ U- 1, lochia minimal -Perineum: no edema, or erythema -Extremities: no edema or tenderness Problems(with codes): (1) (normal spontaneous vaginal delivery) (2) Precipitous drop in hematocrit Assessment/Plan ASSESSMENT -34 yo now ppd #1 s/p doing well. -Blood Type: O+ -Combo feeding -Rubella Immune -Intrapartum fever, suspected chorioamnionitis? PLAN -Continue pain management with oral medications as previously ordered -Increase fluid intake and fiber in diet to promote regular bowel movements, Laxative PRN -Encouraged patient to continue taking vitamin and iron -Discussed antibiotics for 24 hours past time of being afebrile. Antibiotics can be discontinued at 0500 -Educated patient on self care and warning signs of PPH, PPD, and pre-eclampsia. Answered all pt questions and concerns -Continue routine care and anticipate discharge today Plan discussed with: Patient Visit Coding OBGYN Date of Service: Jul 30, 2025 Billing Provider: DYANE MURCIA CNM PHYSICAL SCIENCE TEACHER Common Visit Codes: [id number] INP/OBS CARE(MOD) DAYNE MURCIA CNM Jul 30, 2025 01:39
[2025-07-30] MEDS ORDERED: IBU600T PO (01:44)
[2025-07-30] MEDS ORDERED: DOCU-94 PO (01:44)
--- NOTE | 2025-07-30 01:47 | DVHDS2 ---
Obstetrics Discharge Summary Obstetrics Discharge Summary Date of Admission: Jul 27, 2025 Date of Discharge: Jul 30, 2025 Reason For Admission: Induction of Labor Intrapartum Procedures: Spontaneous vaginal deliv, Vacuum Extraction Procedures: Antibiotics Discharge Diagnosis: Term -Delivered Discharge Information: Activity (Unrestricted. Advance as tolerated. Balance activities with rest periods. No heavy lifting, pushing or straining. Pelvic rest x 6 weeks), Diet (Routine regular diet rich in fiber, protein, iron and vitamin C with adequate fluid intake.), Medications (Ibuprofen 600mg every 6 hours as needed for pain. Colace 100mg twice a day as needed to keep bowel movements soft and prevent constipation. Continue Vitamin and iron), Instructions (Routine), Discharge to (Home), Accompanied by (partner), Discarge date (07/30/25) Discharge Care Plan Instructions - self care instructions given - emergency signs and symptoms including but not limited to pre-eclampsia precautions and signs of infection, PPH & of PPD reviewed with patient. -Follow up with OB Provider in 2 weeks and again at 6 weeks Visit Coding OBGYN Date of Service: Jul 30, 2025 Billing Provider: DAYNE MURCIA CNM FREIGHT TEAM ASSOCIATE Common Visit Codes: [id number] DISCH DAY <30MIN DAYNE MURCIA CNM Jul 30, 2025 01:47
[2025-07-30] MEDS: ceFAZolin 1GM/50ML 50 ML IV SCH (02:10)
[2025-07-30 03:00] VITALS: BP 93/55; PULSE 76; RESP 16; TEMP 98.1; O2SAT 99
[2025-07-30 06:49] VITALS: BP 109/55; PULSE 84; RESP 17; TEMP 98.4; O2SAT 98
[2025-07-30 11:12] VITALS: BP 107/58; PULSE 81; RESP 17; TEMP 98.1; O2SAT 97
== END 2025-07-30 12:35 | disposition home or self-care (01) | DRG 560 ==
LOC: LDRP 18:57 → PREOBSVTOIN 19:00
PROVIDERS: ADMIT Obstetrics & Gynecology; ATTEND Obstetrics & Gynecology
PROC: 3E0R3BZ Introduction of Anesthetic Agent into Spinal Canal, Percutaneous Approach (ICD-10-PCS; 2025-07-28)
PROC: 00HU33Z Insertion of Infusion Device into Spinal Canal, Percutaneous Approach (ICD-10-PCS; 2025-07-28)
PROC: 10D07Z6 Extraction of Products of Conception, Vacuum, Via Natural or Artificial Opening (ICD-10-PCS; principal; 2025-07-29)
PROC: 3E0DXGC Introduction of Other Therapeutic Substance into Mouth and Pharynx, External Approach (ICD-10-PCS; 2025-07-29)
DX: O69.81X0 Labor and delivery complicated by cord around neck, without compression, not applicable or unspecified (principal); Z37.0 Single live birth; R71.0 Precipitous drop in hematocrit; Z3A.39 39 weeks gestation of pregnancy
CPT/HCPCS: 36415; 59025; 59409; 62282; 76815; 80053; 80307; 81001; 81002; 85025; 85610; 85730; 86780; 86803; 86850; 86900; 86901; 94760; 94762; 96360; 96361; 96365; 96366; 96372; 96374; G0378; J0131; J2003; J2405; J2543; J2590